=== PATIENT | male | born 1995 | race Caucasian/White ===

== ENCOUNTER 2016-06-09 08:26 | Emergency (ER) | payer BC ==
[~2016-06-09] VITALS: Ht 190.5 cm; Wt 113.6 kg
[2016-06-09 08:35] VITALS: BP 149/83; PULSE 109; TEMP 98.5
== END 2016-06-09 10:38 | disposition home or self-care (01) ==
LOC: COL.ER 08:26
DX: S93.401A Sprain of unspecified ligament of right ankle, initial encounter (principal); X50.1XXA Overexertion from prolonged static or awkward postures, initial encounter; Y93.74 Activity, frisbee; Y92.830 Public park as the place of occurrence of the external cause

== ENCOUNTER 2016-10-07 17:19 | Emergency (ER) | payer BC ==
[~2016-10-07] VITALS: Ht 190.5 cm; Wt 113.6 kg
[2016-10-07 17:22] VITALS: TEMP 98.5
[2016-10-07 18:00] LABS: BASO # 0.1 (0.0-0.2); BASO % 0.7 % (0.0-2.0); EOS # 0.3 (0.0-0.7); EOS % 3.3 % (0-4.0); GRAN # 5.2 (1.4-6.5); GRAN % 63.9 % (42.2-75.2); HEMATOCRIT 42.5 % (42.0-52.0); LYMPH # 1.4 (1.2-3.4); MEAN CELL VOLUME 93 fl (80.0-100.0); MEAN CORPUSCULAR HEMOGLOBIN 31 pg (27.0-31.0); MEAN CORPUSCULAR HGB CONC 33 g/dl (33.0-37.0); MEAN PLATELET VOLUME 11.3 fl (7.4-10.4); MONO # 1.2 (0.1-0.6); MONO % 14.7 % (1.7-9.3); PLATELET COUNT 254 K/mm3 (130-400); RED BLOOD COUNT 4.58 M/mm3 (4.20-5.60); REDCELL DISTRIBUTION WIDTH-CV 12.8 % (11.5-14.5); WHITE BLOOD COUNT 8.1 K/mm3 (4.8-10.8)
[2016-10-07 18:04] LABS: PH 5 (5-8); SQUAMOUS EPITHELIAL None Seen /hpf; URINE APPEARANCE Clear; URINE BACTERIA None Seen /hpf; URINE BILIRUBIN Negative (NEGATIVE); URINE BLOOD Negative (NEGATIVE); URINE COLOR Yellow; URINE GLUCOSE Negative (NEGATIVE); URINE KETONE Negative (NEGATIVE); URINE RBC 0-2 /hpf; URINE UROBILINOGEN Negative (NEGATIVE); URINE WBC 0-2 /hpf
[2016-10-07 18:14] LABS: ADJUSTED CALCIUM 9.3 mg/dL (8.4-10.2); ALBUMIN 4.8 gm/dL (3.5-5.0); BILIRUBIN,TOTAL 1.2 mg/dL (0.0-1.0); C-REACTIVE PROTEIN 2.6 mg/dL (0.0-0.9); CALCIUM 9.9 mg/dL (8.4-10.2); CREATININE, serum 1.37 mg/dL (0.66-1.25); POTASSIUM 4.2 mmol/L (3.4-5.0); TOTAL PROTEIN 8.3 gm/dL (6.4-8.2)
[2016-10-07] MEDS ORDERED: NORCO 325 MG-51 TAB PO (19:36)
[2016-10-07 19:58] VITALS: BP 138/90; PULSE 96
== END 2016-10-07 19:59 | disposition home or self-care (01) ==
LOC: COL.ER 17:19
PROVIDERS: Emergency Medicine
DX: S30.1XXA Contusion of abdominal wall, initial encounter (principal); V92.0 Drowning and submersion due to fall off watercraft; Y93.17 Activity, water skiing and wake boarding
CPT/HCPCS: J7030; Q9967